=== PATIENT | male | born 2005 | race Caucasian/White ===

== ENCOUNTER 2023-11-23 20:21 | Emergency (ER) | payer SELFPAY ==
[2023-11-23 20:23] VITALS: BP 131/88; PULSE 73; RESP 20; TEMP 36.6; O2SAT 96; BMI 22.8
--- NOTE | 2023-11-23 20:57 | XR_ITS ---
PROCEDURE INFORMATION: Exam: XR Left Hand Exam date and time: 11/23/2023 9:13 PM Age: 18 years old Clinical indication: Injury or trauma; Other: Volleyball; Blunt trauma (contusions or hematomas); Finger; Left; Thumb TECHNIQUE: Imaging protocol: Radiologic exam of the left hand. Views: 1 or 2 views. COMPARISON: No relevant prior studies available. FINDINGS: Bones/joints: Dislocation of the thumb at the metacarpophalangeal joint. The proximal phalanx has dislocated laterally. No evidence of a fracture. Soft tissues: Normal. IMPRESSION: Dislocation of the thumb at the metacarpophalangeal joint. The proximal phalanx has dislocated laterally. No evidence of a fracture.
--- NOTE | 2023-11-23 21:08 | HMH.EDGENADL ---
Discharge Plan Disposition Patient Disposition: Home, Self-Care Referrals Follow up/Referrals: Juan M Holland DO [Staff Physician] - See instructions Maura Antonio [Primary Care Provider] - See instructions Activity Restrictions/Add. Instructions Additional Instructions/Restrictions: You had a thumb dislocation as discussed. Your tendons and ligaments all appear to be intact after the reduction. Please follow-up with our orthopedic surgeon if you have any worsening instability or pain in that thumb. You may take Tylenol and/or ibuprofen as needed for pain. Clinical Impressions Clinical Impression: Closed dislocation of metacarpophalangeal joint of left thumb Discharge ED Provider: Regina Mackenzie General Adult HPI General Chief complaint: Extremity Injury, Upper Stated complaint: left thumb injury Time Seen by Provider: 11/23/23 21:04 Mode of Arrival: Ambulatory Source of Information: Patient Limitations: No Limitations Description of Symptoms (Recalled from ER Triage Doc. by RN): pt was palying volley ball and went to block ball and hit ball with left thumb and now its numbs and hurts a lot, pt is worried its dislocated, pt took motrin before coming to ER History of Present Illness HPI narrative: Patient is a 18-year-old male presenting today with a left thumb injury. States he was playing volleyball went up his hands over the mats and the ball was spiked directly into the most distal aspect of his thumb. Since that time it has been a fixed flexed position and significant pain associated with it. No pain elsewhere or injuries elsewhere. Related Data Allergies Allergy/AdvReac Type Severity Reaction Status Date / Time No Known Allergies Allergy Verified 11/23/23 20:57 [facility] Disclaimer: The information contained in this section may have been updated after the patient was seen, as this information can be updated by other users. Social History Smoking Status: Never smoker alcohol intake: never current occupational status: other Travel in the last 8 weeks: None ROS Obtained: Yes All systems reviewed & no additional complaints except as documented Physical Exam General General appearance: alert and in no apparent distress Respiratory Respiratory exam: Present normal lung sounds bilaterally Cardiovascular Cardiovascular exam: Present regular rate Extremities Exam Extremities exam: Present other (Left hand the metacarpal phalangeal joint of the thumb is in a hyperextended position and the interphalangeal joint is in a fixed flexed position he is neurovascularly intact and significantly painful) Neurological Exam Neurological exam: Present alert and oriented X3 Medical Decision Making [place] Inquiry Pt receiving controlled substance: No Vital Signs: 11/23/23 20:23 Temperature 97.8 F Temperature Source Oral Pulse Rate [Right Radial] 73 Respiratory Rate 20 Blood Pressure [Right Arm] 131/88 Blood Pressure Mean [Right Arm] 102 02 Sat by Pulse Oximetry 96 Oxygen Delivery Method Room Air Orders (Tests/Meds): ED MEDICATIONS Discontinued Medications Generic Name Dose Route Start Last Admin Trade Name Erick PRN Reason Stop Dose Admin Hydrocodone Bitart/Acetaminophen 2 tab 11/23/23 21:07 11/23/23 21:29 Hydrocodone/Apap 5/325 Mg Tablet PO 11/23/23 21:08 2 tab ONCE ONE Administration ORDERS Category Date Time Status Hand XR left 2 views [XR hand LT 2V] Stat Exams 11/23/23 20:57 Taken Hand XR left minimum 3 views [XR hand LT min 3V] Stat Exams 11/23/23 21:37 Taken Medical Decision Narrative: 18-year-old male presents today with above history and physical differential includes fracture dislocation tendon rupture will get plain films and reassess [place] has been administered for pain control. Performed interpreted interval which shows a closed metacarpal phalangeal joint dislocation without any obvious fracture or dislocation. Patient had a digital block and reduction of this with success. He has normal flexion extension he has no varus or valgus laxity or any evidence of any extensor or flexor tendon abnormalities. His surrounding structures appear to be intact and strong. I did not put him in a thumb spica and advised that he follow-up with orthopedic surgeon if he is having worsening of his symptoms and otherwise to take Tylenol and ibuprofen as needed for his pain. Procedures Orthopedic Joint Reduction Joint #1: Time Out Performed: No Side: left Joint Reduction Location: finger (Thumb metacarpal phalangeal joint) Analgesia: nerve block (Digital block) Local Anesthesia: lidocaine 1% and with epi Amount of anesthesic used (mL): 5 Shoulder Technique Used (if applicable): traction/counter-traction Post-reduction neuro exam: intact Post-reduction vascular: intact Post Reduction X-Ray Obtained: Yes Post Reduction X-Ray Results: reduced Splint Applied: No Patient Tolerated Procedure: well Critical Care Critical Care Time Critical Care Time: No
[2023-11-23] MEDS: HYDROCODONE/APAP 5/325 MG TABLET 2 TAB PO (21:29)
--- NOTE | 2023-11-23 21:37 | XR_ITS ---
PROCEDURE INFORMATION: Exam: XR Left Hand Exam date and time: 11/23/2023 9:35 PM Age: 18 years old Clinical indication: Pain; Finger(s); Left; Additional info: Post reduction XR. Thumb TECHNIQUE: Imaging protocol: Radiologic exam of the left hand. Views: 3 or more views. COMPARISON: CR XR HAND LT 2V 11/23/2023 9:13 PM FINDINGS: Bones/joints: Successful reduction of the dislocation at the 1st metacarpophalangeal joint. No evidence of a fracture. Soft tissues: Normal. IMPRESSION: Successful reduction of the dislocation at the 1st metacarpophalangeal joint. No evidence of a fracture.
[2023-11-23 21:57] VITALS: BP 135/70; PULSE 70; RESP 20; TEMP 36.8; O2SAT 99
== END 2023-11-23 21:58 | disposition home or self-care (01) ==
PROVIDERS: Emergency Provider Student in an Organized Health Care Education/Training Program; PCP Nurse Practitioner Family
DX: S63.115A Dislocation of metacarpophalangeal joint of left thumb, initial encounter (principal); M79.645 Pain in left finger(s); X50.0XXA Overexertion from strenuous movement or load, initial encounter; Y93.68 Activity, volleyball (beach) (court)
CPT/HCPCS: 73120; 73130; 99283